=== PATIENT | female | born 1950 | race African-American/Black ===

== ENCOUNTER → 2017-06-05 | Outpatient (CLI) | payer OTHER, MEDICAID ==
[2013-05-29 10:08] VITALS: BP 146/92
--- NOTE | 2017-06-05 09:42 | CT ---
Indication: Hematuria and pain Exam: CT abdomen and pelvis without contrast Technique: Axial spiral images were obtained from lung bases through the pubic symphysis without cont rast. Coronal and sagittal multiplanar reconstructions were performed. Findings: The lung bases are clear. The liver is mildly enlarged with fatty replacement throughout. T he gallbladder, pancreas , and bile ducts are normal. The adrenals are normal. The kidneys are normal size with no hydronephrosis or renal stones. The ureters are normal caliber. The uterus has been rem tamiko with no adnexal mass or free fluid. The mesentery is unremarkable. The appendix is normal. There are diverticula along the sigmoid colon with no pericolonic inflammation. Degenerative changes are s een in the spine with no aggressive osseous lesion. Impression: Mild hepatomegaly and fatty replacement throughout with no acute abnormality seen No hydronephrosis or renal stones and no CT evidence of urinary obstruction . Status post hysterectomy with no pelvic mass or inflammation. Mild diverticulosis of the sigmoid colon with no pericolonic inflammation. Reported By:
== END ==
LOC: RAD 08:35
PROVIDERS: ATTEND Internal Medicine
DX: R31.9 Hematuria, unspecified (principal)
CPT/HCPCS: 74176